=== PATIENT | female | born 1955 | race Caucasian/White ===

== ENCOUNTER → 2020-10-26 | Outpatient (CLI) | payer OTHER ==
[~2020-10-26] MED LIST: CELLCEPT500 MG PO; COLACE 100MG C100 MG PO; ECOTRIN81 MG PO; FEOSOL45 MG PO; FIBER THERAPY500 MG PO; FOLIC ACID 1 MG1 MG PO; MIRALAX17 GM PO; MULTIVITAMINS1 EAC1 PO; NORVASC10 MG PO; PRILOSEC OTC20 MG PO; TREXALL10 MG PO; WELLBUTRIN XL300 M1 PO; ZEGERID 20 MG1 EACH PO
[2020-10-26 12:01] LABS: HEMOGLOBIN 11.2 gm/dl (12.3-15.3); RED BLOOD COUNT 4.61 M/UL (4.00-5.10); WHITE BLOOD COUNT 4.4 K/UL (4.5-11.0)
[2020-10-26 12:22] LABS: BUN/CREATININE RATIO 30 (0-10)
[2020-10-27 15:11] LABS: HBSAG SCREEN Negative (Negative); HEP B CORE AB, IGM Negative (Negative); HEP B CORE AB, TOT Positive (Negative); HEP BE AB Positive (Negative); HEP BE AG Negative (Negative)
== END ==
LOC: LAB 10:44
PROVIDERS: Internal Medicine
DX: D89.89 Other specified disorders involving the immune mechanism, not elsewhere classified (principal); M25.50 Pain in unspecified joint; R76.8 Other specified abnormal immunological findings in serum; Z78.9 Other specified health status; Z79.899 Other long term (current) drug therapy
CPT/HCPCS: 36415; 80053; 85025; 86704; 86705; 86706; 86707; 87340; 87350

== ENCOUNTER → 2020-11-04 | Outpatient (CLI) | payer OTHER | LOC: KOH-I 09:30 | DX: J47.9 Bronchiectasis, uncomplicated (principal); J84.10 Pulmonary fibrosis, unspecified; K22.8 Other specified diseases of esophagus | CPT/HCPCS: 71250 ==

== ENCOUNTER 2021-04-18 11:45 | Inpatient (IN) | payer OTHER ==
[~2021-04-18] VITALS: Ht 170.2 cm; Wt 52.2 kg
[~2021-04-18 11:45] MED LIST changes: -CELLCEPT500 MG PO; -ZEGERID 20 MG1 EACH PO
[2021-04-18 13:18] LABS: HEMOGLOBIN 9.4 gm/dl (12.3-15.3); RED BLOOD COUNT 4.51 M/UL (4.00-5.10); WHITE BLOOD COUNT 5.7 K/UL (4.5-11.0)
[2021-04-18 13:31] LABS: BUN/CREATININE RATIO 23 (0-10)
[2021-04-19 04:20] LABS: RED BLOOD COUNT 3.82 M/UL (4.00-5.10); WHITE BLOOD COUNT 3.2 K/UL (4.5-11.0)
[2021-04-19 04:35] LABS: BUN/CREATININE RATIO 21 (0-10)
[2021-04-19] MEDS ORDERED: PILOCARPINE HCL5 MG PO (08:52)
[2021-04-19] MEDS ORDERED: ZEGERID 40 MG1 EACH PO (09:14)
[2021-04-19] MEDS ORDERED: COLACE100 MG PO (09:15)
[2021-04-19] MEDS ORDERED: CELLCEPT500 MG PO (09:18)
[2021-04-20 11:00] LABS: HEMOGLOBIN 8.2 gm/dl (12.3-15.3); RED BLOOD COUNT 3.96 M/UL (4.00-5.10); WHITE BLOOD COUNT 3.6 K/UL (4.5-11.0)
[2021-04-20 11:18] LABS: BUN/CREATININE RATIO 12 (0-10)
[2021-04-20] MEDS ORDERED: K-DUR TAB 20 M20 MEQ PO (11:26)
[2021-04-20] MEDS ORDERED: FERROUS GLUCON324 M1 PO (11:26)
== END 2021-04-20 12:58 | disposition home or self-care (01) | DRG 390 ==
LOC: ER1 11:45 → CDU 17:59 → MED SURG 4 04-19 16:08
PROVIDERS: Internal Medicine; Physician Assistant; ADMIT Internal Medicine
DX: K56.609 Unspecified intestinal obstruction, unspecified as to partial versus complete obstruction (principal); I10 Essential (primary) hypertension; M06.9 Rheumatoid arthritis, unspecified; Z20.822 Contact with and (suspected) exposure to COVID-19; E87.6 Hypokalemia; I73.00 Raynaud's syndrome without gangrene; D50.9 Iron deficiency anemia, unspecified; F41.9 Anxiety disorder, unspecified; M35.00 Sjogren syndrome, unspecified; R14.0 Abdominal distension (gaseous); Z79.899 Other long term (current) drug therapy; Z90.49 Acquired absence of other specified parts of digestive tract; Z98.49 Cataract extraction status, unspecified eye; Z98.51 Tubal ligation status; Z87.891 Personal history of nicotine dependence; Z79.82 Long term (current) use of aspirin
CPT/HCPCS: 36415; 42970; 80053; 81001; 82378; 83540; 83550; 83690; 83735; 84439; 84443; 85025; 85027; 99285; G0378; J3480; J7042; J7517; Q9967; U0002